=== PATIENT | female | born 1965 | race Two or more races ===

== ENCOUNTER 2021-09-03 13:51 | Emergency (ER) | payer OTHER ==
[~2021-09-03] VITALS: Ht 162.6 cm; Wt 68.0 kg
[2021-09-03] MEDS ORDERED: LEVO50TA8 PO (14:24)
--- NOTE | 2021-09-03 14:30 | NUR ---
Patient ambulated to ER bed 1B, AOx4, calm and breathing easily, skin warm & dry, pending MD evaluation
--- NOTE | 2021-09-03 15:19 | NUR ---
pending MD evaluation, NAD, calm, respiration:easy
--- NOTE | 2021-09-03 15:32 | NUR ---
[email or web address], medical screening exam in progress
--- NOTE | 2021-09-03 15:59 | NUR ---
ER admitting staff Yolanda notified re: plan to admit per .
[2021-09-03 16:01] LABS: HEMATOCRIT 42.3 % (31.2-41.9); MEAN CORPUSCULAR HEMOGLOBIN 30.3 uug (24.7-32.8); MEAN CORPUSCULAR VOLUME 87.2 fL (75.5-95.3); PLATELET COUNT (AUTO) 311 K/uL (179-408)
--- NOTE | 2021-09-03 16:09 | NUR ---
Patient is in CT scan@this time but verbally said, "I don't want to be admitted to any hospital." Patient said this statement before going to CT department, MD notified.
[2021-09-03 16:13] LABS: CREATININE 0.8 mg/dL (0.6-1.3); POTASSIUM 4.4 mmol/L (3.5-5.1)
[2021-09-03 16:45] LABS: BILIRUBIN,TOTAL 0.2 mg/dL (0.2-1.0); TOTAL PROTEIN, SERUM 7.7 g/dL (6.4-8.2)
--- NOTE | 2021-09-03 16:54 | NUR ---
Patient, her spouse and MD are in discussion@the moment re: plan of care
--- NOTE | 2021-09-03 17:52 | NUR ---
IV removed. Catheter intact and site benign. Pressure and 4x4 gauze applied to site. No bleeding noted. Patient does not wish to proceed with medical care recommended by Dr. Todd. Patient was given information related to possible complications, up to and including , which could occur as a result of leaving the hospital at this time. Patient verbalized understanding and compliance of risks involved due to leaving against medical advice. Patient signed AMA form. Copies of all tests' results were also given to patient.
== END 2021-09-03 17:56 | disposition left against medical advice (07) ==
LOC: ER 13:54
DX: R07.9 Chest pain, unspecified (principal); R20.0 Anesthesia of skin; Z88.2 Allergy status to sulfonamides; R94.31 Abnormal electrocardiogram [ECG] [EKG]
CPT/HCPCS: 36415; 70030-TC; 70450; 71045; 82747; 85014; 85025; 85610; 85730; 93005; A4663

== ENCOUNTER 2025-05-02 21:20 | Emergency (ER) | payer MEDICAID, OTHER ==
[~2025-05-02] VITALS: Ht 162.6 cm; Wt 72.6 kg
[~2025-05-02 21:20] MED LIST: LEVO50TA8 PO
[2025-05-02 22:04] LABS: PLATELET COUNT (AUTO) 317 K/uL (179-408); RED BLOOD CELL COUNT(AUTO) 4.66 MIL/uL (3.63-4.92); RED CELL DISTRIBUTION WIDTH 13.2 % (12.3-17.7); WHITE BLOOD COUNT (AUTO) 9.9 K/uL (3.8-11.8)
[2025-05-02 22:20] LABS: CREATININE 1.0 mg/dL (0.6-1.3); SODIUM SERUM 141 mmol/L (136-145); UREA NITROGEN, BLOOD 17 mg/dL (7-18)
[2025-05-02 22:25] LABS: ASPARTATE AMINOTRANSFERASE 29 U/L (15-37); TOTAL PROTEIN, SERUM 7.4 g/dL (6.4-8.2)
[2025-05-02 23:48] LABS: *BILIRUBIN,URIN NEGATIVE (NEGATIVE); *BLOOD, URINE 1+ (NEGATIVE); *CLARITY,URINE CLEAR (CLEAR); *COLOR,URINE YELLOW (YELLOW); *KETONES,URINE NEGATIVE (NEGATIVE); *PROTEIN,URINE NEGATIVE (NEGATIVE); *UROBILINOGEN,URINE 0.2 E.U./dl (NORMAL); LEUKOCYTE ESTERASE ,URINE TRACE (NEGATIVE); NITRITE, URINE NEGATIVE (NEGATIVE); UGLUCOSE NEGATIVE (NEGATIVE)
[2025-05-02 23:52] LABS: *URINE HCG, QUAL NEGATIVE (NEGATIVE)
[2025-05-03 00:13] LABS: SQUAMOUS EPITHELIAL CELL,UR FEW /HPF (NONE SEEN)
[2025-05-03] MEDS ORDERED: ONDANSETRON 4 MG/2 ML VIAL ONE (01:02)
[2025-05-03] MEDS ORDERED: MORPHINE SULFATE 4 MG/1 ML DISP.SYRIN ONE (01:03)
[2025-05-03] MEDS: MORPHINE SULFATE 4 MG/1 ML DISP.SYRIN IV ONE (01:11)
[2025-05-03] MEDS: ONDANSETRON 4 MG/2 ML VIAL IV ONE (01:11)
[2025-05-03] MEDS: IV NORMAL SALINE 1000 ML BAG IV ONE (01:11)
[2025-05-03] MEDS ORDERED: IOHEXOL 350 100 ML INFUS..BTL ONE (01:23)
[2025-05-03] MEDS ORDERED: IV NORMAL SALINE 250 ML IV ONE (01:23)
[2025-05-03] MEDS ORDERED: SWABABLE VALVE TRANSFER SET EA MC ONE (01:23)
[2025-05-03 02:00] VITALS: BP 133/82
[2025-05-03 04:16] VITALS: BP 128/74; O2SAT 97
== END 2025-05-03 03:57 | disposition home or self-care (01) ==
LOC: ER 21:25
DX: R07.9 Chest pain, unspecified (principal); F17.200 Nicotine dependence, unspecified, uncomplicated; Z79.890 Hormone replacement therapy; Z88.2 Allergy status to sulfonamides
CPT/HCPCS: 99285; 71275; 71045; 80076; 80048; 81001; 84703; 83880; 85025; 85379; 85730; 84484 ×2; 36415; 93005; J2405; Q9967; J2270; J7040 ×2; A4606; A4663